=== PATIENT | female | born 1995 | race Caucasian/White ===

== ENCOUNTER 2023-03-24 09:38 | Outpatient (CLI) | payer OTHER, SELFPAY ==
[2023-03-24] VITALS (8 sets, daily range): BP systolic 103–126; BP diastolic 60–93; PULSE 97–108
[2023-03-24 10:33] LABS: Basophils Absolute Auto 0.1 K/mm3 (0.0-0.1); Basophils Percent Auto 0.6 % (0.2-1.2); Eosinophils Absolute Auto 0.2 K/mm3 (0-0.3); Eosinophils Percent Auto 2.4 % (0-4.4); Hematocrit 38.5 % (37.0-47.0); Hemoglobin 12.6 g/dL (12.0-15.0); Immature Granulocyte Absolute 0.08 K/mm3 (0.00-0.031); Lymphocytes Absolute Auto 2.37 K/mm3 (0.9-3.2); Lymphocytes Percent Auto 28.3 % (18.3-44.2); Mean Corpuscular HGB Conc 32.7 g/dl (32-36); Mean Corpuscular Hemoglobin 29.9 pg (26-34); Mean Corpuscular Volume 91.2 fl (80-100); Mean Platelet Volume 9.8 fl (7.4-10.4); Monocytes Absolute Auto 0.7 K/mm3 (0.1-0.6); Monocytes Percent Auto 8.3 % (2.6-8.5); Neutrophils Percent Auto 59.4 % (45.5-73.1); Platelet Count Result 264 k/mm3 (150-375); Red Blood Count 4.22 M/mm3 (4.2-5.4); Red Cell Distribution Width 13.3 % (11.5-14.5); White Blood Count 8.4 K/mm3 (4.5-10.0)
[2023-03-24 10:53] LABS: Alanine Aminotransferase 16 U/L (6-35); Albumin Level 3.4 g/dL (3.5-5.1); Alkaline Phosphatase 189 U/L (38-126); Anion Gap 8 mmol/L (8-16); Aspartate Amino Transferase 26 U/L (14-36); Bilirubin,Total 0.4 mg/dL (0.2-1.3); Blood Urea Nitrogen 6 mg/dL (7-17); Calcium 8.3 mg/dL (8.4-10.2); Carbon Dioxide 18 mmol/L (22-30); Chloride 106 mmol/L (98-107); Estimated Glomerular Filt Rate > 60; Glucose 101 mg/dL (65-110); Potassium 3.5 mmol/L (3.4-5.0); Sodium 132 mmol/L (137-145); Uric Acid 4.4 mg/dL (2.5-7.5)
[2023-03-24 10:59] LABS: Appearance Urine Clear (Clear); Bacteria Urine Rare /hpf; Bilirubin Urine Negative (Negative); Blood Urine Negative (Negative); Color Urine Yellow (Yellow); Glucose Urine UA Negative (Negative); Ketones Urine Negative (Negative); Leukocyte Esterase Ur 1+ LEU/UL (NEGATIVE); Nitrate Urine Negative (Negative); Non Pathogenic Casts 0-2; Protein Urine Negative (Negative); RBC Urine 0-2 /hpf (0-2); Specific Grav Ur 1.013 (1.001-1.035); Squamous Epithelial Cell Urine Moderate /hpf (Few); Urobilinogen Urine 0.2 mg/dL (<2.0); pH Urine 6.5 (5.0-9.0)
[2023-03-24 11:04] LABS: Total Protein Urine Random 13 mg/dL
[2023-03-24 11:30] LABS: Add Urine Microscopic? YES
== END 2023-03-24 11:48 | disposition home or self-care (01) ==
LOC: ANHOBOP 09:42 → ANHOBPP 09:43
PROVIDERS: PCP Nurse Practitioner Family; Visit Provider Advanced Practice Midwife
DX: O13.9 Gestational [pregnancy-induced] hypertension without significant proteinuria, unspecified trimester (principal); Z3A.00 Weeks of gestation of pregnancy not specified
CPT/HCPCS: 36415; 59025; 80053; 81001; 82570; 84156; 84550; 85025; 87086; 87088; 99199

== ENCOUNTER 2023-03-26 05:01 | Inpatient (IN) | payer OTHER, SELFPAY ==
[2023-03-26] VITALS (268 sets, daily range): BP systolic 61–165; BP diastolic 22–121; PULSE 25–153; RESP 16–19; TEMP 35.8–37.7; O2SAT 76–100; BMI 38.7
--- NOTE | 2023-03-26 05:01 | LDADM ---
This patient, Evelina Delacruz, was admitted to Labor/Delivery/Recovery 104 on 03/26/23 at 05:01. Plans for labor, pain management and were discussed with patient. Patient/family oriented to hospital policies and general routines including ID bracelet, bed and alarms, visiting hours, pain management, procedures, bathroom and other care routines, personal items, smoking policy, room service/diet and guest tray routines, security routines, and visiting hours. Patient/Family are encouraged to report perceived risks to care and to ask questions if they do not understand what they are told or what they should do. See OBIX for further documentation.
[2023-03-26 05:28] LABS: Glucose Point of Care 128 mg/dl (65-105)
[2023-03-26] MEDS: LACTATED RINGERS 1,000 ML 125 ML IV CONT ×4 (06:05→18:00)
--- NOTE | 2023-03-26 06:05 | P.PNAN_ITS ---
Anes - Eval Pre Procedure Procedure: labor epidural Date/Time: 03/26/23 06:05 Surgeon: blanca Preop Diagnosis: pain during labor Pre Op Diagnosis: IOL Patient Data Age: 28 Gender: F Height: 1.52 m Weight: 90 kg Last Vital Signs Pulse 104 H 03/26/23 05:34 BP 125/88 03/26/23 05:34 O2 Del Method Room Air 03/26/23 05:22 Allergies Allergy/AdvReac Type Severity Reaction Status Date / Time No Known Allergies Allergy Verified 03/12/23 13:25 Home Medications Medication Instructions Recorded Confirmed Type doxylamine succinate 25 mg tablet 25 mg PO HS 03/12/23 03/26/23 History (Unisom (doxylamine)) escitalopram oxalate 20 mg tablet 20 mg PO DAILY 03/12/23 03/26/23 History vit#24-iron amino acid 1 tablet PO DAILY 03/12/23 03/26/23 History chelat-folic acid 30 mg-975 mcg tablet ferrous sulfate mg PO 03/26/23 History Laboratory Tests 03/26/23 05:24 POC Capillary Glucose 128 H mg/dl (65-105) Patient hx anesthesia problems: none Family hx anesthesia problems: none Results Review: All pre-operative results and documents have been reviewed as part of the pre- operative evaluation. [facility] Family History Family History (Updated 03/12/23 @ 13:34 by Gabrielle Palacios RN) Mother Diabetes mellitus Social History Social History Smoking status: Never smoker Second hand tobacco smoke exposure: No Substance use: never Lack of Transportation: No Lack of Food: Never True Current Housing: I Have Housing Concerned About Future Housing: No Difficulty Paying Gas/Electric Bills: No Difficulty Paying for Meds: No Currently Unemployed: No Education: Master's Degree or Higher Difficulty w/ Childcare or Family Care: No Spiritual care concerns: No Exam Day of Procedure 03/26/23 06:05
[2023-03-26] MEDS: OXYTOCIN 30 UNITS/NS 500 ML 30 UNITS/500 ML BAG 6 UNITS IV CONT (06:06)
[2023-03-26 06:11] LABS: Basophils Percent Auto 0.4 % (0.2-1.2); Eosinophils Absolute Auto 0.3 K/mm3 (0-0.3); Eosinophils Percent Auto 2.8 % (0-4.4); Hematocrit 38.6 % (37.0-47.0); Hemoglobin 12.7 g/dL (12.0-15.0); Immature Granulocyte Absolute 0.11 K/mm3 (0.00-0.031); Immature Granulocyte Percent A 1.2 % (0-0.5); Lymphocytes Absolute Auto 2.94 K/mm3 (0.9-3.2); Lymphocytes Percent Auto 31.3 % (18.3-44.2); Mean Corpuscular HGB Conc 32.9 g/dl (32-36); Mean Corpuscular Hemoglobin 30.1 pg (26-34); Mean Corpuscular Volume 91.5 fl (80-100); Mean Platelet Volume 10.1 fl (7.4-10.4); Monocytes Absolute Auto 0.9 K/mm3 (0.1-0.6); Monocytes Percent Auto 9.5 % (2.6-8.5); Neutrophils Absolute Auto 5.1 K/mm3 (1.3-6.7); Neutrophils Percent Auto 54.8 % (45.5-73.1); Platelet Count Result 301 k/mm3 (150-375); Red Blood Count 4.22 M/mm3 (4.2-5.4); Red Cell Distribution Width 13.4 % (11.5-14.5); White Blood Count 9.4 K/mm3 (4.5-10.0)
--- NOTE | 2023-03-26 07:15 | WPDOBADMIT ---
Obstetrics - Admit Note Admission Note: record reviewed. No pertinent additions to the history and/or any subsequent changes in the physical findings that are not consistent with the expected course of the were found. IOL, GDMA-1, SVE 3-4/70/-2, SMAll amount of clear fluid, IUPC placed, anticipate vaginal delivery Additions to the history and/or subsequent changes in the physical findings follow. None.
[2023-03-26 09:38] LABS: Rapid Plasma Reagin Non-Reactive (NonReactive)
[2023-03-26 10:05] LABS: Glucose Point of Care 141 mg/dl (65-105)
[2023-03-26] MEDS: ONDANSETRON INJ 4 MG/2 ML VIAL IV PUSH (11:10)
[2023-03-26] MEDS: FAMOTIDINE 20 MG/2 ML VIAL IV PUSH (12:10)
[2023-03-26] MEDS: PHENYLEPHRINE 1,000 MCG/10 ML SYRINGE 100 MCG IV PUSH ×4 (12:34→13:37)
[2023-03-26 14:21] LABS: Glucose Point of Care 103 mg/dl (65-105)
[2023-03-26 16:00] LABS: Glucose Point of Care 84 mg/dl (65-105)
[2023-03-26] MEDS: ACETAMINOPHEN 500 MG TABLET 1000 MG PO (18:13)
[2023-03-26] MEDS: AMPICILLIN 2 GM/NS 100 ML 2 GM/100 ML BAG IVPB (19:40)
[2023-03-26] MEDS: fentaNYL CITRATE INJ (*CRX) 100 MCG/2 ML VIAL IV PUSH (20:10)
[2023-03-26] MEDS: CLINDAMYCIN 900 MG/D5W 50 ML 900 MG/50 ML PIGGYBACK 50 MG IVPB (20:14)
[2023-03-26] MEDS: LIDOCAINE HCL 1% LOCAL INJ 20 ML VIAL INFILTRATE (20:15)
[2023-03-26] MEDS: OXYTOCIN 30 UNITS/NS 500 ML 30 UNITS/500 ML BAG 125 UNITS IV CONT (20:39)
--- NOTE | 2023-03-26 20:49 | P.OP_ITS ---
Procedure Note - Detailed Date of Procedure 03/26/23 Pre-op Diagnosis IOL Fourth degree perineal laceration Post-op Diagnosis Same Procedure Performed repair of 4th perineal laceration 7 cm Surgeon Jaquelin Medrano MD Anesthesia Epidural Findings 4th degree laceration in the distal vagina involving the anal sphincter. Some sphincter was spared Description of Procedure with retraction of the vagina revealed defect in the rectal mucosa. Imbricating layer of suture was run over the rectal serosal surfaces involving the outer parenchyma and not involving the lumen of the bowel. It was a running stitch down to the level of the anus. Layers of rectovaginal septum were reapproximated using running Vicryl 2-0 Vicryl sutures. The anal sphincter was brought together using 2-0 Vicryl sutures in figure of 8 configurations 1 at the rectal fascial surface of the anal sphincter involving the belly the muscle and another [id number] on the vaginal side. Individual sutures were placed at the distal and proximal ends of the sphincter. The anal sphincter was reapproximated well with sutures through the fascia through the mid belly of the muscle and into the belly of the adjacent cut muscle And out the fascial layer. Being tied outside of the sphincter. When this was completed there was good mass between the rectum / anus and the rectovaginal septum. Perineal body was reapproximated with 0 Vicryl suture. The vagina was closed the running 20 Vicry l. The perineal skin was closed with subcuticular running 2-0 Vicryl. The procedure was completed. . The patient tolerated the procedure well. Blood loss was significant. See blood loss for the total procedure. Condition Stable
--- NOTE | 2023-03-26 20:59 | PM.OBPRVD ---
OB - Delivery Note Procedure Delivery date: 03/26/23 Procedure: vaginal delivery Events: Gestational Diabetes (diet) Intrapartal Events: Ineffetive Pushing/Maternal Exhaustion Induction method: AROM and Per Pitocin Protocol Delivery monitor: External FHT and Internal Uterine Route of delivery: Episiotomy description: Right Mediolateral Laceration Description: Perineal - 4th Degree (see note dr. rios) Delivery repair: vicryl Specimen: No Anesthesia type: Epidural Disposition: Floor Narrative: maternal exhaustion, fever, and tachycardia after prolonged pushing effort. pt was offered a vacuum assisted delivery, section, discussed risks to baby and mother with both options, when position was 3+ decision was made by her pt and her family for a vacuum placement. Pt had a working epidural and was comfortable. head occiput posterior, vacuum placed, at beginning of contraction pressure amrik to green, pushed for 2 contractions, with 2 pop offs, consent from pt and RML episiotomy made, pressure amrik was released between contractions. 4 more pushes with no additional pop offs and head delivered successfully, fetus rotated to SUMIT and quickly delivered. dr. rios at bedside and assisting through entire procedure, see note CNM proceeded to finish the repair with 2-0 vicryl, pt tolerated well. rectal exam done and intact mother and baby skin to skin in stable position [place] Baby Date of : 03/26/23 Time of : 20:06 Weeks of gestation at delivery: 39 Infant gender: Female Weight (pounds): 8 Weight (ounces): 4 presentation: vertex position: Left Occiput Anterior Placenta delivery description: Spontaneous Cord Vessel Description: 3 Vessels and Clamped/Cut score one minute: 8 score five minutes: 9
[2023-03-26] MEDS: GENTAMICIN SULFATE INJ 450 MG in DEXTROSE 5% 100 ML 100 MG IVPB (21:51)
[2023-03-26] MEDS: HYDROcodone/acetaminophen (*CRX) 5-325 MG TABLET 1 TAB PO (23:28)
[2023-03-26] MEDS: BENZOCAINE 20% AER SPR (*SP) 56 GM CAN 1 SPRAY TOPICAL (23:29)
[2023-03-26] MEDS: WITCH HAZEL 40 PADS 1 PAD TOPICAL (23:29)
[2023-03-27] MEDS: ESCITALOPRAM OXALATE 10 MG TABLET 20 MG PO ×2 (00:26→22:40)
[2023-03-27 00:42] VITALS: BP 120/75; PULSE 108; RESP 18; TEMP 37.1; O2SAT 100
[2023-03-27] MEDS: IBUPROFEN 600 MG TABLET PO ×3 (01:20→22:40)
[2023-03-27] MEDS: HYDROcodone/acetaminophen (*CRX) 5-325 MG TABLET 1 TAB PO ×4 (04:54→22:40)
[2023-03-27] MEDS: AMPICILLIN 1 GM/NS 50 ML 1 GM/50 ML BAG IVPB ×4 (04:55→19:30)
[2023-03-27 05:10] VITALS: BP 93/51; PULSE 100; RESP 18; TEMP 35.6; O2SAT 98
[2023-03-27 05:22] LABS: Hematocrit 28.4 % (37.0-47.0); Hemoglobin 9.4 g/dL (12.0-15.0)
[2023-03-27] MEDS: CLINDAMYCIN 900 MG/D5W 50 ML 900 MG/50 ML PIGGYBACK 50 MG IVPB ×2 (05:33→13:22)
[2023-03-27 08:00] VITALS: BP 108/62; PULSE 90; RESP 16; TEMP 36.2; O2SAT 100
--- NOTE | 2023-03-27 10:21 | PM.OBPNVD ---
OB - PN: Subj Subjective Date/time seen: 03/27/23 10:21 s/p vaginal delivery hx GDM breast feeding/pumping pain controlled OB - PN: Obj Data Labs 03/27/23 04:58 Labs: Laboratory Results - last 24 hr 03/26/23 03/26/23 03/27/23 14:19 15:58 04:58 Hgb 9.4 L D Hct 28.4 L POC Capillary Glucose 103 84 OB - PN A/P Plan day: 1 Time Spent With Patient Time: Total time spent is greater than 50% in coordination of care (as documented) at patient's floor/unit and/or counseling patient: Review of Systems Review of Systems: All systems reviewed & are unremarkable except as noted in HPI and below Exam Const: General: cooperative and healthy appearing Chest: Chest palpation & inspection: normal inspection of the chest Resp: Effort & Inspection: normal respiratory effort Cardio: Rate: regular rate Rhythm: regular rhythm GI: Other: soft Skin: General skin exam: normal color Neuro: General: patient oriented x3 Extrem: Right lower extremity: normal to inspection Left lower extremity: normal to inspection
[2023-03-27] MEDS: DOCUSATE SODIUM 100 MG CAPSULE PO ×2 (11:00→16:23)
[2023-03-27] MEDS: POLYSACCHARIDE IRON COMPLEX 150 MG CAPSULE PO ×2 (11:00→16:23)
--- NOTE | 2023-03-27 11:24 | PC.NURSE ---
1101 Pain medication and PO Iron given late because patient wanted to sleep and wait until she had eaten breakfast.
[2023-03-27 16:15] VITALS: BP 119/80; PULSE 92; RESP 16; TEMP 36.6; O2SAT 99
--- NOTE | 2023-03-27 16:45 | WPDANLDPN2 ---
Anes-Prog Note L&D Date/Time: 03/27/23 16:45 Comfortable throughout: labor and delivery (Epidural turned off per OB RN at delivery for pushing and pt experienced pain with delivery) Neuraxial method: epidural Epidural/Spinal procedure site: clean & non-tender Neuro status: Neuro function grossly intact. Cardiovascular status: normal Respiratory status: normal Airway patency: baseline Mental status: baseline Post-Op hydration status: normal Vital Signs: Last Vital Signs Temp 36.2 C L 03/27/23 08:00 Pulse 90 03/27/23 08:00 Resp 16 03/27/23 08:00 BP 108/62 03/27/23 08:00 Pulse Ox 100 03/27/23 08:00 O2 Del Method Room Air 03/27/23 00:42 Pain score (VAS): 1/10 I/O: Intake & Output 03/27/23 03/27/23 03/27/23 07:59 15:59 23:59 Intake Total 100 150 Balance 100 150 Post-procedural complaints: none Patient feedback: Patient satisfied with anesthetic care. Pt with N/V for the duration of epidural, no improvement with Zofran. Insturcted that is she has an epidural in the future to request lower dosing of epidural infusion.
[2023-03-27 19:30] VITALS: BP 110/70; PULSE 81; RESP 18; TEMP 36.7
[2023-03-28] MEDS: HYDROcodone/acetaminophen (*CRX) 5-325 MG TABLET 1 TAB PO ×2 (04:40→09:46)
[2023-03-28] MEDS: IBUPROFEN 600 MG TABLET PO (04:40)
[2023-03-28 08:00] VITALS: BP 116/68; PULSE 87; RESP 16; TEMP 36.2; O2SAT 100
--- NOTE | 2023-03-28 08:10 | PM.OBPNVD ---
OB - PN: Subj Subjective Date/time seen: 03/28/23 08:10 Interval history: pp day 2 plan d/c home pain managed with norco from 4th degree repair OB - PN: Obj Data Labs 03/27/23 04:58 OB - PN A/P Plan day: 2 Plan: routine care and discharge home Time Spent With Patient Time: Total time spent is greater than 50% in coordination of care (as documented) at patient's floor/unit and/or counseling patient: Review of Systems Review of Systems: All systems reviewed & are unremarkable except as noted in HPI and below Exam Const: General: cooperative and healthy appearing Chest: Chest palpation & inspection: normal inspection of the chest Resp: Effort & Inspection: normal respiratory effort Cardio: Rate: regular rate Rhythm: regular rhythm GI: Other: soft : Other: mild swelling at repair sight Skin: General skin exam: normal color
[2023-03-28] MEDS: DOCUSATE SODIUM 100 MG CAPSULE PO (09:46)
[2023-03-28] MEDS: POLYSACCHARIDE IRON COMPLEX 150 MG CAPSULE PO (09:46)
--- NOTE | 2023-03-28 10:53 | PC.NURSE ---
Patient to view the discharge video Mother & Baby Care, The First Two Weeks online. Patient was given the opportunity and encouraged to ask questions. Patient verbalized understanding of information shared and has been given the mother/baby guide for home reference.
[2023-03-29 10:15] VITALS: BP 132/70; PULSE 68; RESP 18; TEMP 36.9; O2SAT 100
--- NOTE | 2023-03-30 10:24 | PM.OBDSVD ---
DS: Admitting Diagnosis Discharge Date 03/28/23 Admitting Diagnosis GDMA-1, IOL DS: Discharge Diagnosis Discharge Diagnosis (1) Vaginal delivery: Code(s): O80 - Encounter for full-term uncomplicated delivery Status: Acute (2) Fourth degree laceration of perineum during delivery, : Code(s): O70.3 - Fourth degree perineal laceration during delivery Status: Acute OB - DS: Summary OB Procedures : None OB Procedures Intrapartum: Vacuum extraction and Episiotomy OB Procedures: : None Time Spent with Patient Time attestation: Total time spent providing and/or coordinating discharge services: DS: Data Data Completed and Pending Pending studies at discharge: Pending at discharge 03/29/23 07:30 Surgical [PTH] Routine Discharge Plan Discharge Attending physician on discharge: Jaquelin Medrano Consulting providers: Mima Rosenberg; Zaynab Torres; Rosina Hernandez Discharging Clinician: Mima Rosenberg Patient Disposition: Home, Self-Care Activity: pelvic rest Diet: regular Discharge Instructions: Education: Mom and Baby Guide Given to: Mother Follow-Up: Call your delivering provider's office for an appointment to be seen in: 4 Weeks Mom and baby should come to the [facility] for the follow-up appointment. Appointment Date/Time: March 29, 2023 at 10:00 am What to expect at your follow-up visit: Physical Assessment Call [phone] if you are unable to keep your appointment time. BREAST CARE: * Wear a snug supportive bra. * For engorgement discomfort: Breast Feeding: * Apply warm moist washcloths * Express milk as needed to relieve engorgement * Wear loose clothing * For sore nipples: * Identify correct latch-on/Flange size for breast pump * Apply warm moist washcloths before and after nursing * Air dry nipples after nursing * May apply Lansinoh cream to nipples EPISIOTOMY/PERINEAL CARE: * Until bleeding stops, use your elbert bottle after urinating * Change your pad frequently throughout the day * You may take sitz baths several times a day (fill your bathtub with warm water and soak for 20 minutes.) Do NOT bathe in the water * No tub baths until seen by your physician - You may shower ACTIVITY: * Rest as much as possible. * Do not exercise or lift anything heavier than your baby (such as laundry or other children.) * Avoid stairs or driving as much as possible. * Do not put anything into the vagina. No douching, tampons, or sexual activity until seen by physician. NOTIFY PHYSICIAN IF YOU HAVE ANY QUESTIONS OR IF ANY OF THE FOLLOWING SYMPTOMS OCCUR: * If your episiotomy becomes red, swollen, or more painful than what you have experienced in the hospital. * If your vaginal bleeding becomes foul smelling. * If your vaginal bleeding becomes more heavy than a period or if your bleeding changes from pink to bright red. However, you may pass an occasional walnut-sized clot once or twice for the first week . * If you experience a sharp, shooting pain in you calves. * If you discover a hard, reddened area on your breast or if you experience flu-like symptoms. DIET: * Eat regular, well-balanced meals. * Drink plenty of fluids daily. If , drink to thirst. Patient Instructions: Antibiotic Form, Your Baby (DC), Expression, Collection and Storage of Breast Milk (DC) Stand Alone Forms: General Discharge Information Follow-up/Referrals: Mima Rosenberg CNM [Certified Nurse Industrial Energy Engineer] - 4 Weeks Discharge Medications: New hydrocodone-acetaminophen 5-325 mg Tablet 1 tablet PO Q4H PRN (Reason: Pain Rated 4-6) Qty: 20 0RF ibuprofen 600 mg Tablet 600 mg PO Q6H PRN (Reason: Cramping) Qty: 30 0RF Continued PNV no.46-pewh-oaily acid 30-975 mg-mcg Tablet 1 tablet PO DAILY escitalopram oxa
== END 2023-03-28 11:30 | disposition home or self-care (01) | DRG 768 ==
LOC: ANHLDR 05:05 → ANHOB2 23:58
PROVIDERS: Admitting Provider Obstetrics & Gynecology; PCP Nurse Practitioner Family; Referring Provider Advanced Practice Midwife; Visit Provider Obstetrics & Gynecology
DX: O24.429 Gestational diabetes mellitus in childbirth, unspecified control (principal); Z37.0 Single live birth; O41.1230 Chorioamnionitis, third trimester, not applicable or unspecified; O70.3 Fourth degree perineal laceration during delivery; Z3A.39 39 weeks gestation of pregnancy; O42.02 Full-term premature rupture of membranes, onset of labor within 24 hours of rupture; O75.81 Maternal exhaustion complicating labor and delivery
CPT/HCPCS: 36415; 82948; 85014; 85018; 85025; 86592; 86850; 86900; 86901; 88307; A9270; J0290; J1580; J2371; J2405; J2590; J2795; J3010; J7120

== ENCOUNTER 2023-06-02 05:14 | Day surgery (SDC) | payer BC, SELFPAY ==
[2023-06-02] VITALS (7 sets, daily range): BP systolic 90–121; BP diastolic 53–95; PULSE 60–98; RESP 12–16; TEMP 36.8; O2SAT 96–99
[2023-06-02 06:45] LABS: Basophils Percent Auto 0.5 % (0.2-1.2); Eosinophils Absolute Auto 0.4 K/mm3 (0-0.3); Eosinophils Percent Auto 6.8 % (0-4.4); Hematocrit 42.8 % (37.0-47.0); Hemoglobin 13.8 g/dL (12.0-15.0); Immature Granulocyte Absolute 0.01 K/mm3 (0.00-0.031); Immature Granulocyte Percent A 0.2 % (0-0.5); Lymphocytes Absolute Auto 2.75 K/mm3 (0.9-3.2); Lymphocytes Percent Auto 43.2 % (18.3-44.2); Mean Corpuscular HGB Conc 32.2 g/dl (32-36); Mean Corpuscular Hemoglobin 28.2 pg (26-34); Mean Corpuscular Volume 87.3 fl (80-100); Mean Platelet Volume 9.9 fl (7.4-10.4); Monocytes Absolute Auto 0.5 K/mm3 (0.1-0.6); Monocytes Percent Auto 7.8 % (2.6-8.5); Neutrophils Absolute Auto 2.7 K/mm3 (1.3-6.7); Neutrophils Percent Auto 41.5 % (45.5-73.1); Platelet Count Result 332 k/mm3 (150-375); Red Cell Distribution Width 12.1 % (11.5-14.5); White Blood Count 6.4 K/mm3 (4.5-10.0)
[2023-06-02 06:57] LABS: Alanine Aminotransferase 123 U/L (6-35); Albumin Level 4.9 g/dL (3.5-5.1); Alkaline Phosphatase 117 U/L (38-126); Anion Gap 10 mmol/L (8-16); Aspartate Amino Transferase 69 U/L (14-36); Bilirubin,Total 0.5 mg/dL (0.2-1.3); Blood Urea Nitrogen 16 mg/dL (7-17); Calcium 9.6 mg/dL (8.4-10.2); Carbon Dioxide 25 mmol/L (22-30); Chloride 105 mmol/L (98-107); Estimated CRCL calculation 129 ml/min; Estimated Glomerular Filt Rate > 60; Glucose 102 mg/dL (65-110); Potassium 4.2 mmol/L (3.4-5.0); Sodium 140 mmol/L (137-145)
--- NOTE | 2023-06-02 07:35 | ED.GENADULT ---
HPI - General Adult General Chief complaint: Vaginal Bleeding Stated complaint: 9wks PP, bleeding Time Seen by Provider: 06/02/23 07:01 History of Present Illness HPI narrative: Patient is a 20 vaginal bleeding. Ongoing for 9 weeks. She sees syrup ankle and PE who was with Dr. Medrano. She had an outpatient ultrasound yesterday that showed a blood clot versus retained products of conception. Patient has no pelvic pain or malodorous discharge. She has not had an any nausea or vomiting or other concerns. She is . Related Data Home Medications Medication Instructions Recorded Confirmed escitalopram oxalate 20 mg tablet 20 mg PO DAILY 03/12/23 06/02/23 vit#24-iron amino acid 1 tablet PO DAILY 03/12/23 06/02/23 chelat-folic acid 30 mg-975 mcg tablet ferrous sulfate 47.5 mg PO DAILY 03/26/23 06/02/23 Allergies Allergy/AdvReac Type Severity Reaction Status Date / Time No Known Allergies Allergy Verified 06/02/23 06:11 Review of Systems Review of Systems: All systems reviewed & are unremarkable except as noted in HPI and below Constitutional: Constitutional: Reports no additional constitutional complaints ENT: Reports system reviewed and no additional complaints, except as documented Cardiovascular: Cardiovascular: Reports no additional cardiovascular complaints Respiratory: Respiratory: Reports no additional respiratory complaints Gastrointestinal: Gastrointestinal: Reports no additional gastrointestinal complaints Genitourinary: Genitourinary: Reports abnormal vaginal bleeding, Denies nocturia, Denies dysuria, Denies pelvic pain and Denies vaginal discharge PMF Past Medical History Medical History Healthy female adult Surgical History Surgical History No pertinent past surgical history Family History Family History Mother Diabetes mellitus Social History Social History Smoking status: Never smoker Second hand tobacco smoke exposure: No Substance use: never Lack of Transportation: No Lack of Food: Never True Current Housing: I Have Housing Concerned About Future Housing: No Difficulty Paying Gas/Electric Bills: No Difficulty Paying for Meds: No Currently Unemployed: No Education: Master's Degree or Higher Difficulty w/ Childcare or Family Care: No Spiritual care concerns: No Exam Narrative: GENERAL: Well-appearing, well-nourished, and in no acute distress. HEAD: Normocephalic, atraumatic. ENT: Mucous membranes moist. CHEST: Clear to auscultation. No respiratory distress. HEART: Regular rate and rhythm. Normal peripheral pulses. ABDOMEN: Soft, nontender, nondistended. EXTREMITIES: Normal range of motion. No edema. SKIN: Warm, dry, no rash. NEURO: Alert and oriented x3. PSYCH: Normal mood and affect. Course Course Emergency Course: Dr. Medrano bedside. Patient to go to OR for retained products of conception. Patient is stable. Vital Signs Vital signs: Vital Signs Temperature 98.2 F 06/02/23 05:16 Pulse Rate 98 06/02/23 05:16 Respiratory Rate 16 06/02/23 05:16 Blood Pressure 121/79 06/02/23 05:16 Pulse Oximetry 99 06/02/23 05:16 Oxygen Delivery Room Air 06/02/23 05:16 Temperature 98.2 F 06/02/23 08:36 Pulse Rate 60 06/02/23 12:00 Respiratory Rate 16 06/02/23 12:00 Blood Pressure 117/62 06/02/23 12:00 Pulse Oximetry 99 06/02/23 11:00 Oxygen Delivery Room Air 06/02/23 11:00 Oxygen Flow Rate 2 06/02/23 10:32 Medical Decision Making Vital Signs Vital Signs: Vital Signs Temperature 98.2 F 06/02/23 05:16 Pulse Rate 98 06/02/23 05:16 Respiratory Rate 16 06/02/23 05:16 Blood Pressure 121/79 06/02/23 05:16 Pulse Oximet
--- NOTE | 2023-06-02 08:11 | WPDANESEPPF ---
Anes - Initial Pre Proc Eval Procedure: Operation Date: 06/02/23 10:30 Proposed Procedures p Hysteroscopy, Dilation and Curettage - Jaquelin Medrano MD Date/Time: 06/02/23 08:11 Pre Op Diagnosis: 9wks PP, bleeding Patient Data Age: 28 Gender: F Height: 1.52 m Weight: 75 kg Last Vital Signs Temp 36.8 C 06/02/23 05:16 Pulse 98 06/02/23 05:16 Resp 16 06/02/23 05:16 BP 121/79 06/02/23 05:16 Pulse Ox 99 06/02/23 05:16 O2 Del Method Room Air 06/02/23 05:16 Allergies Allergy/AdvReac Type Severity Reaction Status Date / Time No Known Allergies Allergy Verified 06/02/23 06:11 Home Medications Medication Instructions Recorded Confirmed Type escitalopram oxalate 20 mg tablet 20 mg PO DAILY 03/12/23 03/26/23 History vit#24-iron amino acid 1 tablet PO DAILY 03/12/23 03/26/23 History chelat-folic acid 30 mg-975 mcg tablet ferrous sulfate mg PO 03/26/23 History hydrocodone 5 mg-acetaminophen 325 1 tablet PO Q4H PRN Pain Rated 4-6 03/28/23 Rx mg tablet #20 tabs ibuprofen 600 mg tablet 600 mg PO Q6H PRN Cramping #30 tabs 03/28/23 Rx Laboratory Tests 06/02/23 06/02/23 06:38 06:39 WBC 6.4 K/mm3 (4.5-10.0) RBC 4.90 M/mm3 (4.2-5.4) Hgb 13.8 D g/dL (12.0-15.0) Hct 42.8 % (37.0-47.0) MCV 87.3 fl (80-100) MCH 28.2 pg (26-34) MCHC 32.2 g/dl (32-36) RDW 12.1 % (11.5-14.5) Plt Count 332 k/mm3 (150-375) MPV 9.9 fl (7.4-10.4) Immature Gran % (Auto) 0.2 % (0-0.5) Neut % (Auto) 41.5 L % (45.5-73.1) Lymph % (Auto) 43.2 % (18.3-44.2) [place] % (Auto) 7.8 % (2.6-8.5) Eos % (Auto) 6.8 H % (0-4.4) Baso % (Auto) 0.5 % (0.2-1.2) Lymph # (Auto) 2.75 K/mm3 (0.9-3.2) [place] # (Auto) 0.5 K/mm3 (0.1-0.6) Eos # (Auto) 0.4 H K/mm3 (0-0.3) Baso # (Auto) 0.0 K/mm3 (0.0-0.1) Abs Immat Gran (auto) 0.01 K/mm3 (0.00-0.031) Absolute Neuts (auto) 2.7 K/mm3 (1.3-6.7) Absolute Nucleated RBC 0.0 K/mm3 (0.0-0.012) Nucleated RBC % 0.0 % (0.0-0.2) Sodium 140 mmol/L (137-145) Potassium 4.2 mmol/L (3.4-5.0) Chloride 105 mmol/L (98-107) Carbon Dioxide 25 mmol/L (22-30) Anion Gap 10 mmol/L (8-16) BUN 16 D mg/dL (7-17) Creatinine 0.50 L mg/dL (0.7-1.0) Estim Creat Clear Calc 129 ml/min Estimated GFR > 60 (59 - ) Glucose 102 mg/dL (65-110) Calcium 9.6 mg/dL (8.4-10.2) Total Bilirubin 0.5 mg/dL (0.2-1.3) AST 69 H U/L (14-36) ALT 123 H U/L (6-35) Alkaline Phosphatase 117 U/L (38-126) Total Protein 8.0 g/dL (6.3-8.2) Albumin 4.9 g/dL (3.5-5.1) Blood Type O Positive Antibody Screen Negative Patient hx anesthesia problems: none Family hx anesthesia problems: none Results Review: All pre-operative results and documents have been reviewed as part of the pre-operative evaluation. [facility] Past Medical History Medical History Healthy female adult Surgical History Surgical History No pertinent past surgical history Family History Family History Mother Diabetes mellitus Social History Social History Smoking status: Never smoker Second hand tobacco smoke exposure: No Substance use: never Lack of Transportation: No Lack of Food: Never True Current Housing: I Have Housing Concerned About Future Housing: No Difficulty Paying Gas/Electric Bills: No Difficulty Paying for Meds: No Currently Unemployed: No Education: Master's Degree or Higher Difficulty w/ Childcare or Family Care: No
[2023-06-02] MEDS: LACTATED RINGERS 1,000 ML 30 ML IV CONT ×2 (08:40→11:30)
--- NOTE | 2023-06-02 09:15 | PM.IMHP ---
H&P: HPI History of Present Illness Date/Time: 06/02/23 09:15 Chief Complaint: Vaginal bleeding Narrative: 28-year-old multiparous female who is 9 weeks from a vaginal . She has retained placenta. She continues to bleed. We will proceed with hysteroscopy D&C. She understands the procedure. She understands the details. She understands the risks. She understands injuries may occur that result in hospitalization, more surgery, and severe illness. She understands risk of hemorrhage and infection. She denies any nausea, vomiting, fever, chills. She denies any chest pain or shortness of breath. Review of Systems Review of Systems: All systems reviewed & are unremarkable except as noted in HPI and below Constitutional: Constitutional: Denies chills, Denies fatigue, Denies fever(s) and Denies weakness Eyes: Eyes: Denies blurry vision, Denies change in vision, Denies loss of peripheral vision, Denies loss of vision, Denies other visual disturbances and Denies eye pain ENT: Denies vertigo, Denies dizziness, Denies hearing loss, Denies mouth pain, Denies nasal obstruction, Denies neck mass and Denies neck pain Cardiovascular: Cardiovascular: Denies chest pain, Denies diaphoresis, Denies syncope, Denies leg edema and Denies dyspnea Respiratory: Respiratory: Denies chest congestion, Denies cough, Denies hemoptysis, Denies dyspnea and Denies wheezing Gastrointestinal: Gastrointestinal: Denies abdominal pain, Denies constipation, Denies diarrhea, Denies nausea and Denies vomiting Genitourinary: Genitourinary: Denies hematuria, Denies change in libido, Denies nocturia, Denies genital lesions, Denies flank pain and Denies urinary urgency Musculoskeletal: Musculoskeletal: Denies abnormal gait, Denies back pain, Denies myalgias, Denies arthralgias, Denies joint swelling, Denies muscle weakness and Denies neck pain Integumentary/Breasts: Skin/Breast: Denies swelling, Denies breast pain, Denies breast mass, Denies dry skin, Denies nipple discharge, Denies unusual bruising and Denies jaundice Neurologic: Denies Neuro-related abnormal movements, Denies Abnormal speech present, Denies abnormal gait, Denies behavioral changes, Denies confusion, Denies vertigo, Denies dizziness, Denies syncope, Denies loss of vision, Denies memory loss, Denies convulsions and Denies weakness Psychiatric: Psychiatric: Denies abnormal sleep pattern, Denies behavioral changes, Denies change in libido, Denies confusion, Denies depression, Denies anhedonia and Denies memory loss Endocrine: Endocrine: Reports no additional endocrine complaints, Denies change in libido and Denies fatigue Hematologic/Lymphatic: Hematologic/Lymphatic: Reports no additional hematologic/lymphatic complaints Allergic/Immunologic: Allergic/Immunologic: Reports no additional allergic/immunologic complaints and Denies wheezing PMFSH Past Medical History Medical History Healthy female adult Surgical History Surgical History No pertinent past surgical history Family History Family History Mother Diabetes mellitus Social History Social History Smoking status: Never smoker Second hand tobacco smoke exposure: No Substance use: never Lack of Transportation: No Lack of Food: Never True Current Housing: I Have Housing Concerned About Future Housing: No Difficulty Paying Gas/Electric Bills: No Difficulty Paying for Meds: No Currently Unemployed: No Education: Master's Degree or Higher Difficulty w/ Childcare or Family Care: No Spiritual care concerns: No Meds Home Medications and Allergies Home Medications Medication Instructions Recorded Confirmed Type escitalopram oxalate 20 mg tablet 20 mg PO DAILY 03/12/23 10
--- NOTE | 2023-06-02 09:19 | WPDHPUPDATE1 ---
History and Physical Update Update Date/Time: 06/02/23 09:19 History and Physical has been reviewed, including an updated exam of the patient. There are NO changes in the patient's condition. Risks, benefits, and alternatives have been discussed and questions answered. Patient agrees to proceed with procedure.
--- NOTE | 2023-06-02 10:40 | W.PM.PROC2 ---
Procedure Note - Detailed Date of Procedure 06/02/23 Pre-op Diagnosis 9wks PP, bleeding, retained placenta Post-op Diagnosis Same Procedure Performed Hysteroscopy D&C Surgeon Jaquelin Medrano MD Anesthesia MAC Indications abnormal uterine bleeding Findings 2 cm placental fragment firmly fixed to the Fundal endometrium. normal vulva, vagina, cervix Description of Procedure the patient was taken the operating room. She was prepped and draped in the dorsal lithotomy position after induction of mac anesthesia. A speculum was placed in the vagina. The cervix was grasped with a tenaculum. The cervix was dilated about 1 cm. The hysteroscope was inserted. The intrauterine cavity and endocervix were evaluated. Hysteroscope was withdrawn. A medium-size curette was used to curettage all the surfaces were within the endometrial cavity. the sample was collected on Telfa and sent to pathology. the retained placenta was identified after insertion of this cervix. It was grasped with polyp forceps after multiple attempts to remove the tissue. After total fragments were removed the hysteroscope was reinserted and normal findings were observed. . Patient tolerated the procedure well. The speculum and tenaculum were removed. She was taken recovery room in stable condition. Sponge lap and needle counts were correct x2. Estimated Blood Loss -100.0 Drains No Packing No Pathology Yes Complications No immediate complications Condition Stable Disposition PACU
== END 2023-06-02 12:08 | disposition home or self-care (01) ==
LOC: ANHED 08:07 → ANHSURGERY 08:22
PROVIDERS: Emergency Medicine; Emergency Provider Emergency Medicine; PCP Nurse Practitioner Family; Visit Provider Obstetrics & Gynecology
PROC: 0U5B8ZZ Destruction of Endometrium, Via Natural or Artificial Opening Endoscopic (ICD-10-PCS; CPT 58563; principal; 2023-06-02 10:30)
DX: O72.0 Third-stage hemorrhage (principal)
CPT/HCPCS: 59160; 36415; 80053; 81025; 85025; 86850; 86900; 86901; 88305; 99285; J2250; J2405; J2704; J3010; J7120